=== PATIENT | male | born 1965 | race African-American/Black ===

== ENCOUNTER 2017-07-08 22:47 | Emergency (ER) | payer SELFPAY ==
[~2017-07-08] VITALS: Ht 177.8 cm; Wt 87.5 kg
[2017-07-08 23:31] LABS: BASOPHILS % (AUTO) 0.9 % (0.0-2.0); EOSINOPHILS % (AUTO) 7.1 % (1.0-6.0); HEMATOCRIT 41.2 % (41-53); HEMOGLOBIN 13.8 g/dL (13.5-17.5); LYMPHOCYTES # (AUTO) 1.9 K/uL (1.0-4.8); LYMPHOCYTES % (AUTO) 22.7 % (22.0-44.0); MEAN CORPUSCULAR HEMOGLOBIN 27.4 pg (26.0-34.0); MEAN CORPUSCULAR HGB CONC 33.5 G/dL (31.0-37.0); MEAN CORPUSCULAR VOLUME 82 fL (80-100); MONOCYTES # (AUTO) 0.9 K/uL (0.1-1.0); MONOCYTES % (AUTO) 10.5 % (2.0-9.0); NEUTROPHILS % (AUTO) 58.8 % (40.0-70.0); PLATELET COUNT (AUTO) 366 K/uL (150-450); RED BLOOD CELL COUNT(AUTO) 5.03 MIL/uL (4.50-5.90); RED CELL DISTRIBUTION WIDTH 15.2 % (11.5-14.5)
[2017-07-08] MEDS ORDERED: HydrALAZINE HCL 20 MG/ML VIAL IVP ONE (23:45)
[2017-07-08 23:49] LABS: PROTHROMBIN TIME 10.3 SEC (9.4-11.6)
[2017-07-08 23:52] LABS: TROPONIN I 0.04 ng/mL (0.00-0.05)
[2017-07-08 23:55] LABS: CARBON DIOXIDE 27 mmol/L (22-29); SODIUM SERUM 140 mmol/L (136-145)
[2017-07-08 23:56] LABS: ANION GAP 10 mmol/L (8-16); BILIRUBIN,TOTAL 0.2 mg/dL (0.1-1.0); CALCIUM, TOTAL 8.8 mg/dL (8.8-10.5); CHLORIDE 103 mmol/L (98-107); CREATININE 1.25 mg/dL (0.60-1.30); GLOMERULAR FILTR. RATE CALC > 60 mL/min (>60); GLUCOSE,RANDOM 146 mg/dL (70-110); UREA NITROGEN, BLOOD 25 mg/dL (7-18)
[2017-07-08 23:57] LABS: ALANINE AMINOTRANSFERASE 31 U/L (12-78); ALBUMIN 3.1 g/dL (3.4-5.0); ALKALINE PHOSPHATASE 82 U/L (46-116); ASPARTATE AMINOTRANSFERASE 29 U/L (15-37); CREATINE KINASE, TOTAL 310 U/L (39-308); TOTAL PROTEIN, SERUM 8.1 g/dL (6.4-8.2)
[2017-07-08 23:59] LABS: POTASSIUM 2.9 mmol/L (3.5-5.1)
[2017-07-09 00:16] LABS: CREATINE KINASE MB 3.2 ng/mL (0-5)
[2017-07-09] MEDS ORDERED: IOVERSOL 350 MG/ML 100 ML VIAL ONE (00:25)
[2017-07-09] MEDS ORDERED: SODIUM CHLORIDE 0.9% 100 ML ONE (00:26)
[2017-07-09] MEDS ORDERED: ONDANSETRON HCL 4 MG/2 ML VIAL IVP ONE (00:30)
[2017-07-09] MEDS ORDERED: FentaNYL CITRATE-PF 100 MCG/2 ML VIAL IVP ONE (00:30)
[2017-07-09] MEDS ORDERED: POTASSIUM CHL 10 MEQ/WATER 50 ML IV SCH (00:30)
[2017-07-09] MEDS ORDERED: RAPID SEQUENCE KIT [RSI] 1 EACH KIT ONE (01:42)
[2017-07-09] MEDS ORDERED: SUCCINYLCHOLINE CHLORIDE 20 MG/ML 10 ML VIAL ONE (01:42)
[2017-07-09] MEDS ORDERED: LevETIRAcetam 1,000 MG in DEXTROSE 5%-WATER 100 ML IV ONE (01:45)
[2017-07-09] MEDS ORDERED: HydrALAZINE HCL 20 MG/ML VIAL IVP ONE (02:00)
[2017-07-09 02:03] VITALS: BP 163/111
[2017-07-09] MEDS ORDERED: VECURONIUM BROMIDE 10 MG/VIAL IV ONE (22:49)
[2017-07-09] MEDS ORDERED: ETOMIDATE 2 MG/ML 10 ML VIAL IV ONE (22:49)
== END 2017-07-09 02:39 | disposition short-term general hospital (02) ==
LOC: EMS 22:48
DX: I60.9 Nontraumatic subarachnoid hemorrhage, unspecified (principal); I10 Essential (primary) hypertension
CPT/HCPCS: 36415; 51702; 70450; 70496; 71045 ×2; 80053; 82140; 82550; 82553; 84484; 85025; 85610; 85730; 87040; 93005; 96361; 96374; 96375; 96376; 99285; G0480; J0360 ×2; J0712; J2405; J3010; J3480; J3490 ×2; J7050; J7060; Q9967; Z7610; 31500; 94002; J0330